=== PATIENT | female | born 1945 | race Caucasian/White ===

== ENCOUNTER → 2016-11-22 | Outpatient (CLI) | payer OTHER | END | disposition home or self-care (01) | LOC: C.MAMM 09:30 | PROVIDERS: ATTEND Nurse Practitioner Family | DX: M85.852 Other specified disorders of bone density and structure, left thigh (principal) ==

== ENCOUNTER → 2017-09-29 | Outpatient (CLI) | payer OTHER | END | disposition home or self-care (01) | LOC: C.RDSM 10:57 | PROVIDERS: ATTEND Family Medicine | DX: M25.552 Pain in left hip (principal) ==

== ENCOUNTER → 2018-02-21 | Outpatient (CLI) | payer OTHER ==
--- NOTE | 2018-02-22 15:45 | MAMMOGRAPHY REPORT ---
BILATERAL DIGITAL SCREENING MAMMOGRAM TOMOSYNTHESIS WITH CAD: 02/21/2018 CLINICAL HISTORY: Routine screening. Patient has no complaints. TECHNIQUE: Breast tomosynthesis in addition to standard 2D mammography was performed. Current study was also evaluated with a Computer Aided Detection (CAD) system. COMPARISON: Comparison is made to exams dated: 02/22/2012 mammogram - [facility], 12/26/2015 mammogram - [facility], 11/01/2006 mammogram, and 06/09/2005 mammogram - [facility]. BREAST COMPOSITION: There are scattered areas of fibroglandular density in both breasts. FINDINGS: There are scattered benign round calcifications in the breasts. No suspicious mass, antonia ectural distortion or cluster of microcalcifications is seen. IMPRESSION: ACR BI-RADS CATEGORY 1: NEGATIVE There is no mammographic evidence of malignancy. A 1 year screening mammogram is recommended. The pa tient will receive written notification of the results. Approximately 10% of breast cancers are not detected with mammography. A negative mammographic report should not delay biopsy if a clinically suggestive mass is present. Lorie Yang M.D. ay/:02/21/2018 15:21:07 Secret Service Agent: Sara FREY(R)(M), [facility] letter sent: Normal 1/2 BI-RADS Code: ACR BI-RADS Category 1: Negative
== END | disposition home or self-care (01) ==
LOC: C.MAMM 14:09
PROVIDERS: ATTEND Nurse Practitioner Family
DX: Z12.31 Encounter for screening mammogram for malignant neoplasm of breast (principal)

== ENCOUNTER 2018-05-25 06:15 | Inpatient (IN) | payer OTHER ==
[2018-05-04 10:07] VITALS: Ht 162.6 cm; Wt 95.0 kg
--- NOTE | 2018-05-09 11:08 | PAT Medication Instructions ---
Service Date May 09, 2018. Current Home Medication List Albuterol Hfa (Ventolin Hfa), 2 PUFFS INH Q6H PRN for WHEEZING Cholecalciferol (Vitamin D3), 1 TAB PO QAM Fenofibrate (Tricor ), 145 MG PO QAM Fish Oil ([place]-3), 1 CAP PO BID Gxunvgrasny-Mbteaujznbh-Igp C- (Glucosamine Chondroitin), 1 TAB PO BID Ibuprofen (Advil), 800 MG PO QAM Levothyroxine Sodium (Levothyroxine Sodium), 1 TAB PO QAM Lisinopril (Zestril), 20 MG PO QPM Metformin Hcl (Glucophage), 500 MG PO BID Naproxen (Aleve), 220 MG PO QPM PRN for RN Sertraline (Zoloft), 12.5 MG PO QAM Simvastatin (Zocor), 20 MG PO QPM Medication Instructions For Your Scheduled Surgery - Hold the following medications 2 weeks prior to surgery: Fish Oil ([place]-3), 1 CAP PO BID Qfcexmjkerc-Acyrgahfvtg-Uyj C- (Glucosamine Chondroitin), 1 TAB PO BID - Hold the following medications per your surgeon's instructions: Ibuprofen (Advil), 800 MG PO QAM Naproxen (Aleve), 220 MG PO QPM PRN for RN - Hold the following medications 48 hours prior to surgery: Fenofibrate (Tricor ), 145 MG PO QAM - Hold the following medications the morning of surgery: Cholecalciferol (Vitamin D3), 1 TAB PO QAM Metformin Hcl (Glucophage), 500 MG PO BID - Take the following medications the morning of surgery with a sip of water: Albuterol Hfa (Ventolin Hfa), 2 PUFFS INH Q6H PRN for WHEEZING (if needed) Levothyroxine Sodium (Levothyroxine Sodium), 1 TAB PO QAM Sertraline (Zoloft), 12.5 MG PO QAM - Take the following medications as scheduled the night before surgery: Albuterol Hfa (Ventolin Hfa), 2 PUFFS INH Q6H PRN for WHEEZING (if needed) Lisinopril (Zestril), 20 MG PO QPM Metformin Hcl (Glucophage), 500 MG PO BID Simvastatin (Zocor), 20 MG PO QPM If you have any questions please call us at [phone] or [phone] or [phone]
--- NOTE | 2018-05-09 14:37 | History and Physical ---
History & Physical Date of Service May 09, 2018. History & Physical CHIEF COMPLAINT: Left hip pain. HISTORY OF PRESENT ILLNESS: This 72-year-old female who presents to the clinic today for preoperative history and physical. The patient states she has experienced significant left hip pain since January 2017. She has failed all conservative measures, which included injections, physical therapy, activity modification, and use of nonsteroidals along with chiropractic manipulation. The patient states she feels a clicking sensation in the left hip when she bends at her waist and states that it is affecting her ambulation and subsequently causing some left knee pain. PAST SURGICAL HISTORY: Appendectomy, hysterectomy tonsillectomy/adenoidectomy and wisdom tooth extraction. PAST MEDICAL HISTORY: Hyperlipidemia, type 2 diabetes, hypothyroidism, obesity , asthma, rosacea and seborrheic keratosis. FAMILY HISTORY: Positive for colon cancer, diabetes, hypertension, hypothyroidism and pulmonary embolus. ALLERGIES: The patient has medication allergies to PENICILLIN AND AMOXICILLIN. CURRENT MEDICATIONS: Aleve 220 mg tablet twice daily, aspirin 81 mg tablet daily, glucosamine and chondroitin with multivitamin and mineral oil capsule #1 cap twice daily, fenofibrate 145 mg oral tablet #1 tab daily, fish oil 1000 mg oral capsule #2 caps twice daily, Flonase 50 mcg/INH nasal spray #2 sprays intranasally in each nostril daily, levothyroxine 75 mcg oral tablet #1 tab daily, lisinopril 20 mg oral tablet #1 tab daily, metformin 500 mg oral tablet # 1 tab twice daily, ProAir HFA 90 mcg/INH inhalation aerosol #2 puffs inhaled 4 times daily as needed for wheezing, Sertraline 25 mg oral tablet #1 tab daily, simvastatin 20 mg oral tablet #1 tab daily, vitamin D3 1,000 international unit oral capsule #1 cap daily. SOCIAL HISTORY: The patient states she was a half pack a day smoker for 10 years but quit at age 44. She states that she occasionally consumes alcohol approximately #1-2 beverages per month. She denies any illicit drug use. PHYSICAL EXAMINATION: Skin: The patient's skin is normal in appearance with no open skin lesions or discharge. Eyes: Pupils are equal and react to light and accommodating. Extraocular movements are intact. Throat: Posterior oropharynx is clear without edema, erythema or exudate. Cardiovascular exam: The patient has a regular rate and rhythm with no murmurs or gallops appreciated. Lungs: Auscultation of lung [place] reveals clear breath sounds throughout, no wheezing, rales or rhonchi. Abdomen is obese, nondistended, nontender with normoactive bowel sounds. Extremities: Left hip: The patient is able to flex to 95 degrees, externally rotate to 15 degrees and internally rotate 5 degrees. She does have a positive straight leg raise test and Stinchfield test in the left hip. FLIP test is 2-1/2 fists. There is a palpable crepitation with active passive range of motion of the hip joint. The patient experiences referred pain to the anterior groin area with actively, abduction and adduction of the hip. Neurological exam: Cranial nerves 2 through 12 are intact. No motor or sensory deficit. Psychological/general exam : Patient is alert and oriented x3 with proper grooming and hygiene. DIAGNOSES: Left hip osteoarthritis. PROCEDURE: Left total hip arthroplasty. RADIOGRAPHIC IMAGING: X-ray images of the hip show complete collapse of the superior joint space with subchondral cyst on the acetabulum in the femoral side. PLAN: The patient is scheduled to undergo this procedure with Dr. Javier Marshall at the [facility] on 05/25/2018. Risks and complications of the surgery such as infection, bleeding, pain, scarring, nerve and blood vessel damage, weakness, wound problems, stiffness, incomplete relief of symptoms, heart attack, stroke, , hardware failure, loosening, wear, fracture, dislocation, leg length inequality, blood clots and embolism were explained to the patient during her visit today by Dr. Marshall. Informed consent to perform the procedure was obtained. We will also obtain medical clearance from the patient's primary care provider NAIMA Avila, and from her dentist. Also, we will obtain a CBC with differential, complete metabolic panel, PT, INR, PTT, blood type and screen, urinalysis, urine culture, EKG, hemoglobin A1c, and a nasal swab for MRSA. The patient states she will obtain the necessary testing prior to her preanesthesia clearance appointment at the hospital this morning. The patient states that she has a walker at home that she will bring with her on the day of surgery. She was also instructed about the purchase of a hip kit from either [employer] or [facility]. She was advised to discontinue use of her naproxen, fish oil and glucosamine chondroitin 7 days prior to the procedure. She will stop aspirin 3 days prior to the procedure, she will stop her metformin 2 days prior to the procedure. She was given paperwork to obtain a handicap placard prior to the procedure. She was educated about lectures offer here at [facility] in regards to the joint replacement. She states that she will most likely do in- home rehab after the surgery with [facility]. She states she will contact them to set up an initial appointment. The patient was advised that she will be provided with prescriptions for narcotic pain medication, Extra Strength Tylenol, diclofenac sodium and will be advised to increase her aspirin to twice daily for 30 days for DVT prophylaxis. She will also use GLENNA stockings and SCDs to help prevent blood clots after the procedure. The patient was educated about total hip precautions after the procedure. She will be scheduled for a postoperative followup with myself 2 weeks after her surgery date on 06/06/2018 at 12:45 p.m. The patient and her verbalized understanding of all information provided during today's visit and thanked us for the care that she has received and state that if they have questions or concerns that should arise prior to the procedure date ---they will contact the clinic accordingly.
[2018-05-25] VITALS (9 sets, daily range): BP systolic 102–172; BP diastolic 64–99; PULSE 84–98; TEMP 36.4–36.9; O2SAT 92–100
[~2018-05-25] VITALS: Ht 162.6 cm; Wt 95.0 kg
[~2018-05-25 06:15] MED LIST: ACETAMINOPHEN 500 MG TAB PO SCH; CHOL1000 PO; CLINDAMYCIN 600 MG/54 ML D5W 54 ML IV SCH; CeleBREX 200 MG CAP PO SCH; DEXAMETHASONE 4 MG TAB PO SCH; FAMOTIDINE 20 MG TAB PO SCH; FENO145T26 PO; GLC/500 PO; GLUC1CAP35 PO; IBUP-1050 PO; LACTATED RINGER'S 1000ML 1,000 ML IV SCH; LACTATED RINGER'S 1000ML 500 ML IV SCH; LACTATED RINGER'S 1000ML IV SCH; LEVO75TA5 PO; LISI-725 PO; NAPR1TAB9 PO; OMEG10007 PO; ROPIVACAINE 5MG/ML 30 ML 150 MG, BUPIVACAINE 0.5% MPF INJ 30 ML, EpINEphrine HCL INJ 0.... INFIL SCH; SCOPOLAMINE 1.5 MG TDSY TD SCH; SERT25TA PO; SIMV20TA2 PO; TRAMADOL HCL 50 MG TAB PO SCH; VNTHFA/IN INH
[2018-05-25] MEDS: TRANEXAMIC ACID INJ 1,000 MG x 2 Bags IV SCH ×4 (06:30→08:08)
--- NOTE | 2018-05-25 06:45 | History & Physical Bridge Note ---
H&P Re-Evaluation Bridge Note: I have examined the patient, reviewed the History & Physical and in the interval since the performance of the History & Physical I have noted the following changes of clinical significance: No changes noted
[2018-05-25] MEDS ORDERED: BUPIVACAINE 0.5 % 5 MG/1 ML PF 10ML VIAL ONE (06:47)
[2018-05-25] MEDS ORDERED: FENTANYL CITRATE INJ 50 MCG/1 ML 2 ML VIAL ONE (07:29)
[2018-05-25] MEDS ORDERED: MIDAZOLAM HCL 1 MG/ML 2ML VIAL ONE ×2 (07:29→08:33)
[2018-05-25] MEDS ORDERED: POVIDONE-IODINE OP SOLN 30 ML BTL ONE (07:41)
[2018-05-25] MEDS ORDERED: ORTHO JOINT ANESTHETIC ONE (07:41)
[2018-05-25] MEDS ORDERED: EpHEDrine SULFATE INJ 50 MG/ML AMP IV PRN (08:45)
[2018-05-25] MEDS ORDERED: ONDANSETRON INJ 2 MG/ML 2 ML VIAL IV PRN ×2 (08:45→10:30)
[2018-05-25] MEDS ORDERED: PHENYLEPHRINE 100MCG/ML 5ML SYR IV PRN (08:45)
[2018-05-25] MEDS ORDERED: HYDROmorphone INJ 2 MG/ML SYR/VIAL IV PRN (08:45)
[2018-05-25] MEDS ORDERED: ATROPINE SULFATE 0.1 MG/ML 5ML SYR IV PRN (08:45)
[2018-05-25] MEDS ORDERED: DEXAMETHASONE SOD INJ 4 MG/ML VIAL ONE (09:53)
[2018-05-25] MEDS ORDERED: PHENYLEPHRINE HCL INJ 10 MG/ML VIAL ONE (09:53)
[2018-05-25] MEDS ORDERED: ONDANSETRON INJ 2 MG/ML 2 ML VIAL ONE (09:53)
--- NOTE | 2018-05-25 10:10 | [facility] Post Operative Brief Note ---
Immediate Operative Summary Operative Date May 25, 2018. Pre-Operative Diagnosis Left hip osteoarthritis Post-Operative Diagnosis Left hip osteoarthritis Procedure(s) Performed Left Total Hip Arthroplasty-Uncemented Surgeon Dr. Marshall Accounts Payable Technician Surgeon(s) Zeke Castro PA-C Estimated Blood Loss 100ml Findings Consistent with Post-Op Diagnosis Specimens A. Left Femoral head Drains None Anesthesia Type Spinal MAC Complication(s) none Disposition Accompanied Pt To Recover: no Disposition: Recovery Room / PACU
[2018-05-25] MEDS ORDERED: ACETAMINOPHEN 325 MG TAB PO PRN (10:30)
[2018-05-25] MEDS ORDERED: DiphenhydrAMINE HCL 50 MG/ML VIAL IV PRN (10:30)
[2018-05-25] MEDS ORDERED: OXYCODONE HCL IR 5 MG TAB (IMMEDIATE RELEASE) PO PRN (10:30)
[2018-05-25] MEDS ORDERED: MAGNESIUM HYDROXIDE SUSP 30 ML UDC PO PRN (10:30)
[2018-05-25] MEDS ORDERED: METOCLOPRAMIDE HCL INJ 5 MG/ML 2 ML VIAL IV PRN (10:30)
[2018-05-25] MEDS ORDERED: ALUMINUM/MAGNESIUM/SIMETH (MAALOX MAX) 30 ML UDC PO PRN (10:30)
[2018-05-25] MEDS ORDERED: ALBUTEROL HFA 8 GM INHALER INH PRN (10:30)
[2018-05-25] MEDS ORDERED: BISACODYL 10 MG SUPP PR PRN (10:30)
[2018-05-25] MEDS ORDERED: MoRPHine SULFATE 4 MG/ML 1 ML CARP\\VIAL IV PRN (10:30)
--- NOTE | 2018-05-25 10:44 | OPERATIVE REPORT ---
DATE OF OPERATION: 05/25/2018 PREOPERATIVE DIAGNOSIS: Left hip osteoarthritis. POSTOPERATIVE DIAGNOSIS: Left hip osteoarthritis. OPERATION PERFORMED: Left total hip arthroplasty. SURGEON: Javier Marshall MD BUILDING SPECIALIST: Zeke Castro PA-C ESTIMATED BLOOD LOSS: 100 mL. IV FLUIDS: 1300 mL crystalloid. SPECIMENS: Femoral head and acetabular reamings. COMPLICATIONS: None. IMPLANTS: 1. DePuy Gription acetabular shell sector cup 56 mm outer diameter. 2. A 6.5 x 35 mm cancellous bone screw. 3. A 36 mm inner diameter polyethylene liner. 4. A DePuy [place] femoral stem with a 12/14 taper, size 5 standard offset. 5. DePuy metal femoral head 36 mm with +8.5 offset 12/14 taper. INDICATIONS: Ms. Dennis is a 72-year-old female who has had left hip pain that is refractory to conservative management. Radiographs demonstrate [id number] osteoarthritis. I had a long discussion with her about the risks and benefits of surgery, alternatives to surgery and expected outcomes. After reviewing all these, she elected to proceed with surgery. All questions were answered. Informed consent was signed. OPERATIVE FINDINGS: Left total hip arthroplasty was performed using a metal on polyethylene bearing. The patient had routine osteoarthritis findings. DESCRIPTION OF PROCEDURE: The patient was identified in the preoperative holding area where her surgical site was marked. She was given a spinal by anesthesia and brought back to the main operating room where she was placed in the operating room table, rolled into the lateral decubitus position. Axillary roll was placed. All bony prominences were padded. Perioperative antibiotics were administered. She was prepped and draped in the normal sterile fashion. Prior to incision, a multidisciplinary timeout was called. All in the room were in agreement. We began by making a 16 cm incision for a posterior approach to the hip. We dissected through subcutaneous tissues and incise the fascia in line with the incision. Charnley bow was placed. The quadratus femoris short external rotators and piriformis were dissected off the posterior aspect of the trochanter. A box cut was made in the capsule. The hip was dislocated. Our neck cut was made at 12 mm, which was our preoperative template. We then exposed the acetabulum. The acetabular labrum was excised with a knife. The contents of cotyloid fossa were removed with large curette. The acetabular reaming then progressed moving from a size [address] up to a size 56 reamer. This gave us excellent cancellous bony bleeding surface for healing. The 56 mm outer diameter cup was then impacted into position with 45 degrees of lateral opening and 25 degrees of anteversion. A single cancellous bone screw was placed. Excellent fixation was obtained. The cup was then irrigated out. The polyethylene liner was then impacted into position. The locking mechanism was checked and we confirmed it had engaged. Femur was exposed. The contents of piriformis fossa and lateral capsule were excised. A cookie cutter was used to remove the lateral neck. We then used the canal finder followed by the lateralizing reamer. She reamed up to a size 5, which was our preoperative template. We then broached her all the way up to a size 5, which gave us excellent torsional stability. We started trialing with standard offset neck. This gave us a good stability, but her shuck test was just slightly loose. I therefore upsized her to a +8.5 head. With the +8.5 in position, her shuck test was improved. Her leg lengths were symmetrical. She had no impingement with extension and external rotation. She was stable in the sleeper position. At 90 degrees of hip flexion, she could be internally rotated 55 degrees before levering out of the cup. At this point, the hip was redislocated. The femoral trial was removed. The real size 5 standard offset stem was impacted down into position. It sat at the same level as the broach. We then opened up the +8.5 metal femoral head and impacted onto the trunnion, which had been cleaned and dried. The hip was reduced without difficulty. We then began to close. The wound was irrigated with sterile Betadine solution. We then injected the periarticular cocktail for postoperative pain control into the pericapsular tissues as well as in the subcutaneous tissues. The piriformis and short external rotators as well as the capsule were repaired through bone tunnels in the posterior aspect of the greater trochanter using #2 Vicryl. The fascia was run with a looped 0 PDS suture. The subcutaneous layers were closed with 2 running #1 PDS sutures. The skin was closed with a subcuticular 3-0 Monocryl. Steri-Strips and a Silverlon dressing were placed. This was then followed by a compression dressing over the top. The patient was placed in an abduction pillow, rolled supine onto the hospital bed. Her sedation was lifted and she was transferred to the recovery room in stable condition. POSTOPERATIVE COURSE: The patient will be admitted to the hospital overnight for pain control, monitoring and to work with physical and occupational therapy. She will be on for aspirin for DVT prophylaxis. We anticipate discharge home tomorrow. She will be on posterior hip precautions. I attest to the content of the Intraoperative Record and any orders documented therein. Any exception s are noted below.
--- NOTE | 2018-05-25 10:53 | Anesthesiology Progress Note ---
Anesthesia Post Op Note Date & Time May 25, 2018 at 10:53 Vital Signs Pain Intensity: 0 Vital Signs Past 12 Hours Date Time Temp Pulse Resp B/P (MAP) Pulse Ox O2 Delivery O2 Flow Rate FiO2 05/25/18 10:50 79 14 99/66 97 Nasal Cannula 2 05/25/18 10:40 79 15 111/71 99 Nasal Cannula 2 05/25/18 10:30 80 19 111/69 98 Nasal Cannula 2 05/25/18 10:19 36.6 83 16 112/70 97 Nasal Cannula 2 05/25/18 07:32 36.4 88 18 172/99 99 Room Air Notes Mental Status: alert / awake / arousable, participated in evaluation Pt Amnestic to Procedure: Yes Nausea / Vomiting: adequately controlled Pain: adequately controlled Airway Patency, RR, SpO2: stable & adequate BP & HR: stable & adequate Hydration State: stable & adequate Anesthetic Complications: no major complications apparent
--- NOTE | 2018-05-25 11:10 | DIAGNOSTIC IMAGING REPORT ---
L PELVIS/UNILATERAL HIP 1 VIEW HISTORY: 72 years-old Female IN PACU - A/P PELVIS and LATERAL HIP INCLUDING ALL OF IMPLANT left hip total joint arthroplasty COMPARISON: Pelvis radiograph 05/09/2018 TECHNIQUE: Portable AP view of the pelvis with crosstable lateral view of the left hip FINDINGS: Moderate right hip posterior arthritis. Left hip total joint arthroplasty with satisfactory alignment. Elongated femoral stem. No acute fracture or retained foreign body. Expected postsurgical soft tissue swelling with deep tissue air. IMPRESSION: Left hip total joint arthroplasty with satisfactory alignment. The above report was generated using voice recognition software. It may contain grammatical, syntax or spelling errors. Electronically signed by: Josesito Sarabia M.D. 05/25/2018 11:09 AM Dictated Date/Time: 05/25/2018 11:07 AM
[2018-05-25] MEDS ORDERED: GLUCAGON FOR INJ 1 MG VIAL IM PRN (12:15)
[2018-05-25] MEDS ORDERED: CARBOHYDRATES FOR HYPOGLYCEMIA PO PRN (12:15)
[2018-05-25] MEDS ORDERED: DEXTROSE 50% 50 ML SYR IV PRN (12:15)
[2018-05-25] MEDS ORDERED: GLUCOSE 40% GEL 15 GM TUBE PO PRN (12:15)
[2018-05-25] MEDS ORDERED: GLUCOSE 10 TABS/TUBE PO PRN (12:15)
[2018-05-25] MEDS ORDERED: MoRPHine SULFATE 2 MG/ML CARP IV PRN (12:30)
--- NOTE | 2018-05-25 13:06 | [facility] Operative Report ---
Operative Report Operative Date May 25, 2018. Pre-Operative Diagnosis Left hip osteoarthritis Post-Operative Diagnosis Left hip osteoarthritis Procedure(s) Performed Left Total Hip Arthroplasty-Uncemented Surgeon Dr. Marshall Fabric Coating Supervisor Surgeon(s) Zeke Castro PA-C Estimated Blood Loss 100ml Findings Left hip end-stage DJD Specimens A. Left Femoral head Drains None Anesthesia Type Spinal MAC Complication(s) none Disposition no Recovery Room / PACU Indications This 72-year-old white female presented to the office with complaints of severe left hip pain. She had tried activity modification, oral anti-inflammatories, and oral pain medication without lasting improvement. She elected to proceed with surgical intervention after being educated about potential risks and outcomes. Preoperative imaging was obtained. Description of Procedure Patient was administered a spinal anesthetic and then taken to the operating room where she was given sedation. She was prepped and draped in usual sterile fashion. Please see Dr. Marshall's operative report for specifics of the procedure. I was present for the entire case from initial patient positioning through final wound closure. Assistance was provided in tissue retraction, hemostasis, trial implant placement, final implant placement, and final wound closure. Patient was taken to the recovery room in satisfactory condition. I attest to the content of the Intraoperative Record and any orders documented therein. Any exceptions are noted below.
[2018-05-25] MEDS: ACETAMINOPHEN IV 1,000 MG in EMPTY BAG 0 ML IV SCH ×2 (13:48→21:16)
[2018-05-25] MEDS: CHECK SCOPOLAMINE PATCH PLACEMENT SCH ×2 (15:15→23:52)
[2018-05-25] MEDS: CLINDAMYCIN IV 600 MG in DEXTROSE 5% 50ML 50 ML IV SCH ×2 (15:17→23:52)
[2018-05-25] MEDS ORDERED: TRANEXAMIC ACID INJ 1,000 MG in SODIUM CHLORIDE 0.9% 100ML 100 ML IV SCH (17:00)
[2018-05-25] MEDS: INSULIN ASPART 100 UNITS/ML 3 ML PEN SC SCH ×2 (17:51→21:16)
[2018-05-25] MEDS: SODIUM CHLORIDE 0.9% 1000ML 1,000 ML IV SCH (17:53)
[2018-05-25] MEDS: FERROUS GLUCONATE 324 MG TAB PO SCH (17:53)
[2018-05-25] MEDS: KETOROLAC TROMETHAMINE 15 MG/ML VIAL IV. SCH ×2 (17:53→23:52)
[2018-05-25] MEDS: DOCUSATE SODIUM 100 MG CAP PO SCH (20:12)
[2018-05-25] MEDS: ASPIRIN 81 MG ECTAB PO SCH (20:12)
[2018-05-25] MEDS ORDERED: LISINOPRIL 20 MG TAB PO SCH (21:00)
[2018-05-25] MEDS ORDERED: SIMVASTATIN 20 MG TAB PO SCH (21:00)
[2018-05-26 02:58] VITALS: BP 119/56; PULSE 87; TEMP 36.6; O2SAT 96
[2018-05-26] MEDS: SODIUM CHLORIDE 0.9% 1000ML 1,000 ML IV SCH ×2 (05:25→09:39)
[2018-05-26] MEDS: ACETAMINOPHEN IV 1,000 MG in EMPTY BAG 0 ML IV SCH (05:25)
[2018-05-26] MEDS: KETOROLAC TROMETHAMINE 15 MG/ML VIAL IV. SCH ×2 (05:26→12:20)
[2018-05-26] MEDS ORDERED: LEVOTHYROXINE 75 MCG TAB PO SCH (06:00)
[2018-05-26 06:08] LABS: EOS % 0.1 %; EOS ABS # 0.01 K/uL (0-0.5); HEMATOCRIT 30.6 % (37-47); HEMOGLOBIN 10.3 g/dL (12.0-16.0); IG# 0.03 K/uL (0.00-0.02); LYMPH % 11.5 %; LYMPH ABS # 1.42 K/uL (1.2-3.4); MEAN CELL VOLUME 95.9 fL (80-100); MEAN CORPUSCULAR HEMOGLOBIN 32.3 pg (25-34); MEAN CORPUSCULAR HGB CONC 33.7 g/dl (32-36); MEAN PLATELET VOLUME 9.4 fL (7.4-10.4); MONO ABS # 0.99 K/uL (0.11-0.59); NEUT % 80.2 %; NEUT ABS # 9.94 K/uL (1.4-6.5); PLATELET COUNT 243 K/uL (130-400); RED CELL DISTRIBUTION WIDTH CV 12.6 % (11.5-14.5); RED CELL DISTRIBUTION WIDTH SD 44.1 fL (36.4-46.3); WHITE BLOOD COUNT 12.39 K/uL (4.8-10.8)
[2018-05-26 06:36] LABS: CALCIUM 8.4 mg/dl (8.5-10.1); CREATININE 1.02 mg/dl (0.60-1.20); POTASSIUM 4.5 mmol/L (3.5-5.1)
[2018-05-26 07:13] VITALS: BP 102/65; PULSE 78; TEMP 36.5; O2SAT 95
[2018-05-26] MEDS ORDERED: DEXAMETHASONE INJ 10 MG in SYRINGE 0 ML IV ONE (07:30)
[2018-05-26] MEDS: CHECK SCOPOLAMINE PATCH PLACEMENT SCH (07:49)
[2018-05-26] MEDS ORDERED: FENOFIBRATE 145 MG TAB PO SCH (09:00)
[2018-05-26] MEDS ORDERED: PANTOprazole SOD 40 MG TAB PO SCH (09:00)
[2018-05-26] MEDS ORDERED: SERTRALINE HCL 50 MG TAB PO SCH (09:00)
[2018-05-26] MEDS ORDERED: MULTIVITAMIN TAB PO SCH (09:00)
[2018-05-26] MEDS: ASPIRIN 81 MG ECTAB PO SCH (09:28)
[2018-05-26] MEDS: DOCUSATE SODIUM 100 MG CAP PO SCH (09:28)
[2018-05-26] MEDS: FERROUS GLUCONATE 324 MG TAB PO SCH ×2 (09:28→12:21)
[2018-05-26] MEDS: INSULIN ASPART 100 UNITS/ML 3 ML PEN SC SCH ×2 (09:33→12:00)
[2018-05-26] MEDS ORDERED: NURSING VERBAL MED ORDER ONE (09:45)
--- NOTE | 2018-05-26 10:21 | Orthopedic Progress Note ---
Orthopedic Progress Note Date of Service May 26, 2018. Subjective Post OP Day: 1 Reports: feeling well, pain controlled w PO medications, Denies: complaints, chest pain, SOB, nausea / vomiting, light headedness, calf pain, using JUNIOR HIGH MATH TEACHER Additional Notes: Tolerating diabetic diet and drinking fluids. Objective calves soft nontender, N/V intact, hip located, capillary refill less than 2 sec., dressing C/D/I, A&O x3, toes mobile, CMS intact Patient was walking with physical therapist using walker without complaints. Date Time Temp Pulse Resp B/P (MAP) Pulse Ox O2 Delivery O2 Flow Rate FiO2 05/26/18 07:45 Room Air 05/26/18 07:13 36.5 78 16 102/65 (77) 95 Room Air 05/26/18 02:58 36.6 87 14 119/56 (77) 96 Room Air 05/26/18 01:40 Room Air 05/25/18 22:58 36.4 86 17 102/65 (77) 92 Room Air 05/25/18 19:12 36.9 98 18 117/72 (87) 94 Room Air 05/25/18 15:40 36.8 87 18 104/64 (77) 95 Room Air 05/25/18 15:10 Room Air 05/25/18 14:18 88 18 125/76 (92) 93 Room Air 05/25/18 13:07 95 18 126/72 (90) 95 Room Air 05/25/18 12:15 89 16 123/75 (91) 100 05/25/18 11:44 93 18 123/66 (85) 100 2.0 05/25/18 11:15 36.4 84 16 105/68 (80) 98 Nasal Cannula 2.0 05/25/18 11:15 Nasal Cannula 2.0 05/25/18 11:15 Nasal Cannula 2.0 05/25/18 11:00 36.5 81 15 101/68 97 Nasal Cannula 2 05/25/18 10:50 79 14 99/66 97 Nasal Cannula 2 05/25/18 10:40 79 15 111/71 99 Nasal Cannula 2 05/25/18 10:30 80 19 111/69 98 Nasal Cannula 2 05/25/18 10:19 36.6 83 16 112/70 97 Nasal Cannula 2 Laboratory Results 24 Hours: Test 05/26/18 05:51 White Blood Count 12.39 K/uL Red Blood Count 3.19 M/uL Hemoglobin 10.3 g/dL Hematocrit 30.6 % Mean Corpuscular Volume 95.9 fL Mean Corpuscular Hemoglobin 32.3 pg Mean Corpuscular Hemoglobin Concent 33.7 g/dl Platelet Count 243 K/uL Mean Platelet Volume 9.4 fL Neutrophils (%) (Auto) 80.2 % Lymphocytes (%) (Auto) 11.5 % Monocytes (%) (Auto) 8.0 % Eosinophils (%) (Auto) 0.1 % Basophils (%) (Auto) 0.0 % Neutrophils # (Auto) 9.94 K/uL Lymphocytes # (Auto) 1.42 K/uL Monocytes # (Auto) 0.99 K/uL Eosinophils # (Auto) 0.01 K/uL Basophils # (Auto) 0.00 K/uL Assessment & Plan Assessment: S/P left Total Hip Replacement POD 1 Plan: Patient doing well. Ready to be D/Cd today to Home with [facility]. (rx written) She has a walker at home. PT saw her this am and OT to see her before she goes home. Instructed on wound care. Instructed on SHP. Instructed on DVT prophylaxis with ASA 81mg BID x 30 days and deepti hose. Aware of D/C med including ASA, Tylenol, Oxy IR, Voltaren. (rx written). Has ice pack for pain/swelling. Aware of follow up appointment with Dr Marshall. Advised to call office with any questions or concerns. Discharge Planning Discharge Planning: home with home health Pain Management: PO Tylenol, Oxy IR DVT Prophylaxis: TEDs, ASA Therapy: Physical Therapy
[2018-05-26] MEDS ORDERED: ASPI-461 PO (10:27)
[2018-05-26] MEDS ORDERED: RXC5 PO (10:27)
[2018-05-26] MEDS ORDERED: ACET-1256 PO (10:27)
[2018-05-26] MEDS ORDERED: DICL75TA2 PO (10:27)
--- NOTE | 2018-05-26 10:32 | Discharge Instructions ---
Discharge Instructions Date of Service May 26, 2018. Admission Reason for Admission: Left Hip Arthritis Discharge Discharge Diagnosis / Problem: left hip arthritis Discharge Goals Goal(s): Decrease discomfort, Improve function, Increase independence Activity Recommendations Activity Limitations: per Instructions/Follow-up section Lifting Limitations: until after follow-up appointment Exercise/Sports Limitations: until after follow-up appointment May Resume Sexual Activity: after follow-up appointment Shower/Bathe: keep incision dry Driving or Machine Use: until f/u with MD. Guajardo 4wks. Need to be off pain meds and not using walker. Weightbearing Status: Left weightbearing (as tolerated) With walker. Gradually progress to cane with therapist as you feel comfortable. Follow SHP. . Instructions / Follow-Up Instructions / Follow-Up Post-operative Instructions Dear Patient and Family/Friends, Before you are discharged from the hospital, it is important to know what to expect when you get home after surgery. To that end, we have created this sheet of discharge instructions which covers many commonly asked questions. Make sure you go through this sheet in its entirety with your nurse before you are discharged. Please note that we will go over the specifics of your surgery and recovery when you return for your first post-operative visit. Sincerely, Dr. Marshall Pain Expect to be in a fair amount of pain after surgery. Remember, our goal is not to eliminate your pain, but to make it tolerable. It is a good idea to stay ahead of your pain by taking the medications you were prescribed once you get home. Typically, the pain starts improving 3-7 days after surgery. You should start weaning off the narcotic pain medication (oxycodone, hydrocodone, hydromorphone, morphine) as soon as your pain improves. Please call our office if your pain is not adequately controlled. Ice Ice your operative site at least 5 times a day for 15-30 minutes at a time. Make sure you have a thin cloth between the ice or cooling unit and your skin to prevent nina bite. This is especially important if you received a nerve block. Continue icing your operative site for the first 5-7 days after surgery , then as needed. Diet/Nausea/Vomiting Start by drinking clear liquids and eating crackers. If you can tolerate this, then you may resume your normal diet. If you feel nauseated or vomit, take Zofran/ondansetron (if prescribed). Please call our office if you have intractable nausea or vomiting, or, if after hours, you may go to the Emergency Room for help. Constipation Constipation is a common side effect of narcotic pain medication. If you have not had a bowel movement within 2 days after surgery, we recommend purchasing an over the counter laxative such as Milk of Magnesia, Dulcolax, or Miralax from a local pharmacy, and taking it as instructed. Call our clinic if any questions. Slings and Braces If you were placed in a sling or brace, it must be worn at all times, including sleep. You may remove your sling or brace for physical therapy, home exercises , and showering. The length of time you will be in your brace and range of motion restrictions depends on what surgery you had; these details will be reviewed at your first post-operative appointment. Nerve block The anesthesia team sometimes places a nerve block to help with post-operative pain control. This results in significant numbness and inability to move the extremity. The nerve block usually wears off in 8-12 hours, but sometimes can last up to 24 hours. Please call our office if you are still unable to move your extremity after 24 hours, unless you received a pain pump to take home. Nerve blocks typically wear off quickly, so start taking pain medication as soon as you start feeling soreness near your surgical site. Weight bearing and Range of Motion. Do not bear any weight through your operative extremity immediately after surgery. If you had upper extremity surgery, do not lift anything with that arm. If you are in a knee brace, keep it locked in place until your follow-up. We will discuss your weight bearing, range of motion, and lifting restrictions in detail at your first post-operative appointment. Continuous Passive Motion (CPM) Machine If you were prescribed a CPM machine, it will start after your first post- operative appointment, at which time we will give you instructions on the range of motion settings and duration of treatment Physical therapy You will be given a prescription for physical therapy or occupational therapy at your first post-operative appointment. Typically, patients start therapy within 1 week of surgery Wound care and showering We will inspect your wound at your first post-operative visit, and may do a dressing change at that time. Most patients will be in a water-proof dressing that is removed 14 days after surgery. It is normal to see some dried blood on the dressing. Do not remove your dressing, paper strips or sutures yourself unless you are given permission. Showering is allowed the day after surgery. Do not scrub or remove any dressings. The wound should not be submerged underwater (i.e. in a bathtub or pool) until 4 weeks after surgery GLENNA stocking If you were given white stockings, these are to be worn at all times except to shower (on both legs) for the first 2 weeks after surgery. Driving You may not drive while taking narcotic pain medication or while in a cast, splint, sling or brace. You, the patient, need to make the final determination about when you are safe to drive, however, the earliest you may consider driving after surgery is below: Hand/Wrist/Elbow Surgery: 3 days Shoulder Surgery: 2 weeks Hip,/Knee/Ankle Surgery: 4 weeks Fracture repair: 6 weeks Return to Work Your return to work depends on what surgery was done and what type of work you do. Please bring any paperwork your employer needs completed to your first post -operative visit. Also, bring a description of your job duties, as this helps us to understand what risks you may face at work. Travel Avoid long distance travel (greater than 1 hour) in airplanes and cars for the first 6 weeks after surgery. If you must travel, you need to have a Doppler ultrasound done before you travel to rule out a blood clot in your legs. Follow-up WITH JENN NUÑEZ PA-C ON 06-06-18 AT 12:45PM You should have a follow-up appointment already scheduled 1-2 days after surgery. If not, please contact our office to make this appointment before you leave the hospital. When to call the office It is normal to have swelling and bruising in the limb that was operated on. This will improve with time. It is also normal to have fevers for the first 2 days after surgery. Reasons you should call your doctor include: Uncontrolled pain; Nausea, vomiting, or constipation that does not improve with medication; Fevers over 101.5, chills, sweats; Drainage or bleeding from the wound; Foul odor; Spreading areas of redness; Any other concerns Current Hospital Diet Patient's current hospital diet: Diabetes Type 2 Diet Discharge Diet Recommended Diet: Diabetes Type 2 Diet Procedures Procedures Performed: Left Total Hip Arthroplasty-Uncemented Pending Studies Studies pending at discharge: no Laboratory Results Hemoglobin A1c Test 05/09/18 10:56 Range/Units Estimated Average Glucose 131 mg/dl Hemoglobin A1c 6.2 H 4.5-5.6 % Medical Emergencies . Who to Call and When: Medical Emergencies: If at any time you feel your situation is an emergency, please call 911 immediately. . Non-Emergent Contact Non-Emergency issues call your: Surgeon Call Non-Emergent contact if: temperature is above 101.5, your pain is not controlled, wound has increased drainage . "Provider Documentation" section prepared by Hamida Vinson. . [place] Drug Monitoring Program Search Results: patient reviewed within database
[2018-05-26 10:52] VITALS: BP 102/65; PULSE 78; TEMP 36.5; O2SAT 95
[2018-05-26 11:24] VITALS: BP 117/72; PULSE 88; TEMP 36.6; O2SAT 93
--- NOTE | 2018-05-26 13:16 | Anesthesiology Progress Note ---
Anesthesia Post Op Note Date & Time May 26, 2018 at 13:16 Vital Signs Pain Intensity: 1.0 Vital Signs Past 12 Hours Date Time Temp Pulse Resp B/P (MAP) Pulse Ox O2 Delivery O2 Flow Rate FiO2 05/26/18 11:24 36.6 88 16 117/72 (87) 93 Room Air 05/26/18 10:52 36.5 78 16 95 Room Air 05/26/18 07:45 Room Air 05/26/18 07:13 36.5 78 16 102/65 (77) 95 Room Air 05/26/18 02:58 36.6 87 14 119/56 (77) 96 Room Air 05/26/18 01:40 Room Air Notes Mental Status: alert / awake / arousable, participated in evaluation Pt Amnestic to Procedure: Yes Nausea / Vomiting: adequately controlled Pain: adequately controlled Airway Patency, RR, SpO2: stable & adequate BP & HR: stable & adequate Hydration State: stable & adequate Anesthetic Complications: no major complications apparent
--- NOTE | 2018-05-26 15:42 | Discharge Summary ---
Discharge Summary Date of Service May 26, 2018. 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 Secondary Diagnoses/Problems: Diabetic type 2, asthma, hyperlipidemia, hypothyroidism Procedures: Left total hip replacement Consultations: none Pending Studies/Follow-Up: F/U with [facility] on 06-06-18 at 12:45 with JENN Gonzales PA-C Medication Reconciliation New Medications: Acetaminophen (Tylenol) 500 Mg Tab 2 TAB PO Q8 for 10 Days, #60 TAB 1 Refill Diclofenac Sodium (Voltaren) 75 Mg Tab 1 TAB PO BID for 30 Days, #60 TAB 0 Refills Aspirin (Aspirin) 81 Mg Tab 81 MG PO BID for 30 Days, #60 TAB 0 Refills Oxycodone HCl (Oxycodone HCl) 5 Mg Tab 5-10 MG PO Q4H PRN for Pain, #60 TAB 0 Refills Continued Medications: Albuterol Hfa (Ventolin Hfa) 200 Puffs/08533 Mcg Aers 2 PUFFS INH Q6H PRN for WHEEZING, #1 INHALER Cholecalciferol (Vitamin D3) 1,000 Unit Tab 1 TAB PO QAM for 90 Days, #90 TAB 3 Refills Fenofibrate (Tricor ) 145 Mg Tab 145 MG PO QAM, TAB Levothyroxine Sodium (Levothyroxine Sodium) 75 Mcg Tab 1 TAB PO QAM for 90 Days, #90 TAB 3 Refills Lisinopril (Zestril) 20 Mg Tab 20 MG PO QPM, TAB Metformin Hcl (Glucophage) 500 Mg Tab 500 MG PO BID, TAB Sertraline (Zoloft) 25 Mg Tab 12.5 MG PO QAM, TAB Simvastatin (Zocor) 20 Mg Tab 20 MG PO QPM, TAB Discontinued Medications: Fish Oil ([place]-3) 1 Ea Cap 1 CAP PO BID, CAP Hfikohczduw-Pmyqxlzzbwr-Jtr C- (Glucosamine Chondroitin) 1 Cap Cap 1 TAB PO BID Ibuprofen (Advil) 200 Mg Tab 800 MG PO QAM, TAB Naproxen (Aleve) 220 Mg Tab 220 MG PO QPM PRN for RN, TAB Hospital Course 72 year old female underwent L THR with Dr Marshall. Received pre and post- op ABX. Tolerated spinal anesthesia. No post-op complications. Patient's pain controlled with PO medication and ice. Tolerated diabetic diet and drinking fluids. Able to sleep throughout night without complaints. PT/OT saw patient POD 1. Instructed on SHP, gait training. Patient using walker. No issues in therapy. Wound intact with silverlon dressing. Patient choosing to go home with home health. She is aware of wound care. Keep dressing on until fu with our office. Able to shower. Aware of DVT prophylaxis with ASA 81mg BID x 30 days and glenna hose until f/u. Pain medication scripts reviewed which include tylenol, voltaren, oxy ir. Provided with ice pack. Patient has fu with our office on 06-06-18 at 12:45. She will call office with any questions or concerns. Total time spent on discharge = This includes examination of the patient, discharge planning, medication reconciliation, and communication with other providers. Discharge Instructions Post-operative Instructions Dear Patient and Family/Friends, Before you are discharged from the hospital, it is important to know what to expect when you get home after surgery. To that end, we have created this sheet of discharge instructions which covers many commonly asked questions. Make sure you go through this sheet in its entirety with your nurse before you are discharged. Please note that we will go over the specifics of your surgery and recovery when you return for your first post-operative visit. Sincerely, Dr. Marshall Pain Expect to be in a fair amount of pain after surgery. Remember, our goal is not to eliminate your pain, but to make it tolerable. It is a good idea to stay ahead of your pain by taking the medications you were prescribed once you get home. Typically, the pain starts improving 3-7 days after surgery. You should start weaning off the narcotic pain medication (oxycodone, hydrocodone, hydromorphone, morphine) as soon as your pain improves. Please call our office if your pain is not adequately controlled. Ice Ice your operative site at least 5 times a day for 15-30 minutes at a time. Make sure you have a thin cloth between the ice or cooling unit and your skin to prevent nina bite. This is especially important if you received a nerve block. Continue icing your operative site for the first 5-7 days after surgery , then as needed. Diet/Nausea/Vomiting Start by drinking clear liquids and eating crackers. If you can tolerate this, then you may resume your normal diet. If you feel nauseated or vomit, take Zofran/ondansetron (if prescribed). Please call our office if you have intractable nausea or vomiting, or, if after hours, you may go to the Emergency Room for help. Constipation Constipation is a common side effect of narcotic pain medication. If you have not had a bowel movement within 2 days after surgery, we recommend purchasing an over the counter laxative such as Milk of Magnesia, Dulcolax, or Miralax from a local pharmacy, and taking it as instructed. Call our clinic if any questions. Slings and Braces If you were placed in a sling or brace, it must be worn at all times, including sleep. You may remove your sling or brace for physical therapy, home exercises , and showering. The length of time you will be in your brace and range of motion restrictions depends on what surgery you had; these details will be reviewed at your first post-operative appointment. Nerve block The anesthesia team sometimes places a nerve block to help with post-operative pain control. This results in significant numbness and inability to move the extremity. The nerve block usually wears off in 8-12 hours, but sometimes can last up to 24 hours. Please call our office if you are still unable to move your extremity after 24 hours, unless you received a pain pump to take home. Nerve blocks typically wear off quickly, so start taking pain medication as soon as you start feeling soreness near your surgical site. Weight bearing and Range of Motion. Do not bear any weight through your operative extremity immediately after surgery. If you had upper extremity surgery, do not lift anything with that arm. If you are in a knee brace, keep it locked in place until your follow-up. We will discuss your weight bearing, range of motion, and lifting restrictions in detail at your first post-operative appointment. Continuous Passive Motion (CPM) Machine If you were prescribed a CPM machine, it will start after your first post- operative appointment, at which time we will give you instructions on the range of motion settings and duration of treatment Physical therapy You will be given a prescription for physical therapy or occupational therapy at your first post-operative appointment. Typically, patients start therapy within 1 week of surgery Wound care and showering We will inspect your wound at your first post-operative visit, and may do a dressing change at that time. Most patients will be in a water-proof dressing that is removed 14 days after surgery. It is normal to see some dried blood on the dressing. Do not remove your dressing, paper strips or sutures yourself unless you are given permission. Showering is allowed the day after surgery. Do not scrub or remove any dressings. The wound should not be submerged underwater (i.e. in a bathtub or pool) until 4 weeks after surgery GLENNA stockings If you were given white stockings, these are to be worn at all times except to shower (on both legs) for the first 2 weeks after surgery. Driving You may not drive while taking narcotic pain medication or while in a cast, splint, sling or brace. You, the patient, need to make the final determination about when you are safe to drive, however, the earliest you may consider driving after surgery is below: Hand/Wrist/Elbow Surgery: 3 days Shoulder Surgery: 2 weeks Hip,/Knee/Ankle Surgery: 4 weeks Fracture repair: 6 weeks Return to Work Your return to work depends on what surgery was done and what type of work you do. Please bring any paperwork your employer needs completed to your first post -operative visit. Also, bring a description of your job duties, as this helps us to understand what risks you may face at work. Travel Avoid long distance travel (greater than 1 hour) in airplanes and cars for the first 6 weeks after surgery. If you must travel, you need to have a Doppler ultrasound done before you travel to rule out a blood clot in your legs. Follow-up You should have a follow-up appointment already scheduled 1-2 days after surgery. If not, please contact our office to make this appointment before you leave the hospital. When to call the office It is normal to have swelling and bruising in the limb that was operated on. This will improve with time. It is also normal to have fevers for the first 2 days after surgery. Reasons you should call your doctor include: Uncontrolled pain; Nausea, vomiting, or constipation that does not improve with medication; Fevers over 101.5, chills, sweats; Drainage or bleeding from the wound; Foul odor; Spreading areas of redness; Any other concerns
[2018-05-26] MEDS ORDERED: CeleBREX 200 MG CAP PO SCH (21:00)
== END 2018-05-26 14:05 | disposition home health service (06) | DRG 470 ==
LOC: C.ACU 06:15 → C.3E 06:40 → ENRESERV 10:51
PROVIDERS: ADMIT Orthopaedic Surgery; ATTEND Orthopaedic Surgery
PROC: 0SRB02A Replacement of Left Hip Joint with Metal on Polyethylene Synthetic Substitute, Uncemented, Open Approach (ICD-10-PCS; principal; 2018-05-25 08:15)
DX: M16.12 Unilateral primary osteoarthritis, left hip (principal); E11.9 Type 2 diabetes mellitus without complications; E78.5 Hyperlipidemia, unspecified; J45.909 Unspecified asthma, uncomplicated; E03.9 Hypothyroidism, unspecified; E66.9 Obesity, unspecified; Z79.899 Other long term (current) drug therapy; Z79.84 Long term (current) use of oral hypoglycemic drugs; Z79.82 Long term (current) use of aspirin; Z79.1 Long term (current) use of non-steroidal anti-inflammatories (NSAID); Z68.35 Body mass index [BMI] 35.0-35.9, adult; Z87.891 Personal history of nicotine dependence; Z88.0 Allergy status to penicillin; Z80.0 Family history of malignant neoplasm of digestive organs; Z83.3 Family history of diabetes mellitus; Z82.49 Family history of ischemic heart disease and other diseases of the circulatory system; Z83.49 Family history of other endocrine, nutritional and metabolic diseases